=== PATIENT | female | born 1985 | race Caucasian/White ===

== ENCOUNTER 2017-03-21 08:08 | Emergency (ER) | payer OTHER ==
[~2017-03-21] VITALS: Ht 172.7 cm; Wt 103.0 kg
[~2017-03-21 08:08] MED LIST: ALPR.25 PO; DEPA250T2 PO; FIORIC PO; OXYC5 PO; Z.0.NO CURRENT MEDS
[2017-03-21 08:14] VITALS: BP 136/101; PULSE 86; RESP 16; TEMP 98; O2SAT 100
[2017-03-21] MEDS ORDERED: ESCI5TAB PO (08:47)
[2017-03-21] MEDS ORDERED: BUTA1CAP PO (08:51)
[2017-03-21 08:57] VITALS: BP 127/74; PULSE 72; RESP 16; O2SAT 100
[2017-03-21] MEDS ORDERED: KETOROLAC TROMETHAMINE 30 MG/ML (IVP) VIAL IV PUSH ONE (09:00)
[2017-03-21] MEDS ORDERED: CYCLOBENZAPRINE HCL 10 MG TAB PO ONE (09:00)
[2017-03-21 09:11] LABS: AUTOMATED NEUTROPHIL # 2.9 TH/MM3 (1.8-7.7); BASOPHIL % 0.5 % (0.0-2.0); EOSINOPHIL % 0.8 % (0.0-4.0); HEMATOCRIT 39.8 % (35.0-46.0); HEMO FLAGS DIFF FINAL; LYMPH % 36.4 % (9.0-44.0); LYMPHOCYTE # 1.9 TH/MM3 (1.0-4.8); MEAN CELL VOLUME 86.5 FL (80.0-100.0); MEAN CORPUSCULAR HEMOGLOBIN 28.7 PG (27.0-34.0); MEAN CORPUSCULAR HGB CONC 33.2 % (32.0-36.0); MONO % 5.8 % (0.0-8.0); NEUT % 56.5 % (16.0-70.0); PLATELET COUNT 260 TH/MM3 (150-450); RED CELL DISTRIBUTION WIDTH 13.1 % (11.6-17.2); WHITE BLOOD COUNT 5.1 TH/MM3 (4.0-11.0)
--- NOTE | 2017-03-21 09:28 | RADHPO ---
EXAM DATE/TIME: 03/21/2017 09:06 [place] COMPARISON: No previous studies available for comparison. INDICATIONS : Left-sided face and extremity numbness. RADIATION DOSE: 62.75 CTDIvol (mGy) MEDICAL HISTORY : None SURGICAL HISTORY : Hysterectomy. ENCOUNTER: Initial ACUITY: 2 days PAIN SCALE: 0/10 LOCATION: cranial TECHNIQUE: Multiple contiguous axial images were obtained of the head. Using automated exposure control and adj ustment of the mA and/or kV according to patient size, radiation dose was kept as low as reasonably a chievable to obtain optimal diagnostic quality images. FINDINGS: CEREBRUM: The ventricles are normal for age. No evidence of midline shift, mass lesion, hemorrhage or acute in farction. No extra-axial fluid collections are seen. POSTERIOR FOSSA: The cerebellum and brainstem are intact. The 4th ventricle is midline. The cerebellopontine angle i s unremarkable. EXTRACRANIAL: The visualized portion of the orbits is intact. SKULL: The calvaria is intact. No evidence of skull fracture. CONCLUSION: Unremarkable exam with no evidence of hemorrhage or infarction. Deny Hunter MD on March 21, 2017 at 9:25 Board Certified Radiologist. This report was verified electronically.
[2017-03-21 09:57] VITALS: BP 135/78; PULSE 72; RESP 16; O2SAT 99
[2017-03-21 10:18] LABS: BICARBONATE 28.3 MEQ/L (21.0-32.0); BLOOD UREA NITROGEN 12 MG/DL (7-18)
[2017-03-21 10:21] LABS: ALT (GPT) 19 U/L (10-53); GLOMERULAR FILTRATION RATE 101 ML/MIN (>89)
[2017-03-21 10:22] LABS: ANION GAP 8 MEQ/L (5-15); CHLORIDE 107 MEQ/L (98-107); POTASSIUM 3.6 MEQ/L (3.5-5.1); SODIUM (NA) 143 MEQ/L (136-145)
[2017-03-21 10:23] LABS: TOTAL BILIRUBIN ADULT 0.5 MG/DL (0.2-1.0)
[2017-03-21 10:24] LABS: ALKALINE PHOSPHATASE 69 U/L (45-117)
[2017-03-21 10:34] LABS: AST (GOT) 13 U/L (15-37)
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
[2017-03-21] MEDS ORDERED: CYCL1TAB29 PO (10:47)
--- NOTE | 2017-03-21 21:59 | EKG ---
Date Performed: 03/21/2017 Time Performed: 09:03:32 PTAGE: 32 years EKG: Sinus rhythm Low QRS voltages in precordial leads Borderline ECG PREVIOUS TRACING : 05/20/2016 23.59 DOCTOR: Jazmine Servin Interpretating Date/Time 03/21/2017 21:52:25
== END 2017-03-21 11:00 | disposition home or self-care (01) ==
LOC: PHED 08:08
DX: M79.1 Myalgia (principal); M54.12 Radiculopathy, cervical region
CPT/HCPCS: 70450; 80053; 84484; 85025; 93005; 96374; 99284; J1885

== ENCOUNTER 2017-06-21 13:15 | Emergency (ER) | payer OTHER ==
[~2017-06-21] VITALS: Ht 175.3 cm; Wt 100.0 kg
[~2017-06-21 13:15] MED LIST changes: -ALPR.25 PO; +BUTA1CAP PO; +CYCL1TAB29 PO; -DEPA250T2 PO; +ESCI5TAB PO; -FIORIC PO; -OXYC5 PO; -Z.0.NO CURRENT MEDS
[2017-06-21 13:22] VITALS: BP 134/58; PULSE 88; RESP 14; TEMP 98.6; O2SAT 97
[2017-06-21] MEDS ORDERED: SODIUM CHLOR 0.9% 1000 ML INJ 1,000 ML IV ONE (13:37)
[2017-06-21 13:40] VITALS: O2SAT 97
[2017-06-21] MEDS ORDERED: SODIUM CHLORIDE 0.9% FLUSH 10 ML FLUSH IVF PRN (13:45)
[2017-06-21 13:48] LABS: AUTOMATED NEUTROPHIL # 4.5 TH/MM3 (1.8-7.7); BASOPHIL % 0.6 % (0.0-2.0); EOSINOPHIL % 0.5 % (0.0-4.0); HEMATOCRIT 37.1 % (35.0-46.0); HEMO FLAGS DIFF FINAL; LYMPHOCYTE # 1.6 TH/MM3 (1.0-4.8); MEAN CELL VOLUME 85.3 FL (80.0-100.0); MONO % 5.6 % (0.0-8.0); NEUT % 69.3 % (16.0-70.0); PLATELET COUNT 239 TH/MM3 (150-450); RED BLOOD COUNT 4.35 MIL/MM3 (4.00-5.30); RED CELL DISTRIBUTION WIDTH 12.4 % (11.6-17.2); WHITE BLOOD COUNT 6.5 TH/MM3 (4.0-11.0)
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
[2017-06-21] MEDS ORDERED: ESCI10TA PO (13:53)
[2017-06-21 13:57] LABS: CHLORIDE 110 MEQ/L (98-107); POTASSIUM 3.4 MEQ/L (3.5-5.1); SODIUM (NA) 142 MEQ/L (136-145)
[2017-06-21 14:00] LABS: ANION GAP 8 MEQ/L (5-15); BICARBONATE 24.4 MEQ/L (21.0-32.0); MAGNESIUM 1.8 MG/DL (1.5-2.5)
[2017-06-21 14:01] LABS: BLOOD UREA NITROGEN 11 MG/DL (7-18)
[2017-06-21 14:03] LABS: ALT (GPT) 24 U/L (10-53); AST (GOT) 15 U/L (15-37); GLOMERULAR FILTRATION RATE 104 ML/MIN (>89)
[2017-06-21 14:05] LABS: TOTAL BILIRUBIN ADULT 0.6 MG/DL (0.2-1.0)
[2017-06-21 14:06] LABS: ALKALINE PHOSPHATASE 70 U/L (45-117)
[2017-06-21] MEDS ORDERED: POTASSIUM CHLORIDE 20 MEQ CONTROLLED RELEASE TAB PO ONE (14:15)
[2017-06-21 14:24] VITALS: BP_SYST 116; BP_SYST 117; BP_SYST 126; BP_DIAS 62; BP_DIAS 70; BP_DIAS 84
[2017-06-21 15:06] VITALS: BP 121/72
--- NOTE | 2017-06-22 16:40 | EKG ---
Date Performed: 06/21/2017 Time Performed: 13:46:21 PTAGE: 32 years EKG: Sinus rhythm NORMAL ECG PREVIOUS TRACING : 03/21/2017 09.03 Since previous tracing, no significant change noted DOCTOR: Esequiel Albarran Interpretating Date/Time 06/22/2017 16:40:25
== END 2017-06-21 15:09 | disposition home or self-care (01) ==
LOC: PHED 13:15
DX: R42 Dizziness and giddiness (principal); G62.9 Polyneuropathy, unspecified
CPT/HCPCS: 80053; 83735; 85025; 93005; 96360; 99284; J7030